=== PATIENT | female | born 1965 | race Caucasian/White ===

== ENCOUNTER 2017-05-06 12:31 | Emergency (ER) | payer MEDICARE ==
[~2017-05-06] VITALS: Ht 170.2 cm; Wt 124.4 kg
[~2017-05-06 12:31] MED LIST: Aspirin E.C. PO; Pravachol PO; TYLENOL REGULA325 MG PO; ZESTORETIC 20-1 EAC1 NG; Zegerid PO
[2017-05-06 13:17] LABS: BASOPHIL (%) 0.9 % (0-1); BASOPHIL COUNT 0.1 K/uL (0-0.1); EOSINOPHIL (%) 0.4 % (0-5); HEMATOCRIT 42.8 % (36.0-46.0); HEMOGLOBIN 14.3 G/DL (11.9-15.5); IMMATURE GRANULOCYTE (%) 0.6 % (0.0-0.7); LYMPHOCYTE (%) 19.7 % (15-42); LYMPHOCYTE COUNT 1.4 K/uL (1.0-2.8); MCHC 33.4 G/DL (30.0-36.0); MCV 83.9 FL (83-99); MONOCYTE (%) 15.1 % (3-12); NEUTROPHIL (%) 63.3 % (45-76); NEUTROPHIL COUNT 4.4 K/uL (1.8-6.4); PLATELET COUNT 188 K/uL (156-360); RBC DIS.WIDTH-CV 12.8 % (11.8-14.6); RBC DIS.WIDTH-SD 39.4 % (39-53); WHITE BLOOD COUNT 6.9 K/uL (4.1-10.2)
[2017-05-06 13:29] LABS: CHLORIDE 102 mEq/L (99-109); POTASSIUM 3.9 mEq/L (3.7-5.4); SODIUM 138 mEq/L (136-147)
[2017-05-06 13:30] LABS: GLUCOSE 92 mg/dL (70-99)
[2017-05-06 13:34] LABS: CREATININE 0.7 mg/dL (0.6-1.3); GFR ESTIMATE (CALCULATED) > 59 mL/min/
[2017-05-06 13:35] LABS: UREA NITROGEN (BUN) 7 mg/dL (9-23)
[2017-05-06] MEDS ORDERED: PREDNISONE20 MG PO (14:26)
[2017-05-06 14:44] VITALS: BP 142/84
== END 2017-05-06 14:46 | disposition home or self-care (01) ==
LOC: EME 12:31
PROVIDERS: Physician Assistant
DX: J10.1 Influenza due to other identified influenza virus with other respiratory manifestations (principal); E78.5 Hyperlipidemia, unspecified; I10 Essential (primary) hypertension; K21.9 Gastro-esophageal reflux disease without esophagitis; Z79.82 Long term (current) use of aspirin; Z88.5 Allergy status to narcotic agent; Z88.0 Allergy status to penicillin; Z88.8 Allergy status to other drugs, medicaments and biological substances
CPT/HCPCS: 71046; 80048; 85025; 87502; 94640; 99281; 99284; J7512